=== PATIENT | female | born 1980 | race Caucasian/White ===

== ENCOUNTER 2016-12-25 17:50 | Inpatient (IN) | payer OTHER ==
--- NOTE | ~2016-12-25 | CR72 ---
[facility] A Service of [facility] & [facility] RADIOLOGY TEXT RESULTS PATIENT: ONI JODRAN LOCATION: [facility] 330-01 : 78 UNIT #: [id number] AGE: [address]: Jatin Hernandez MD SEX: F ORDER DR: [id number] [facility] [address] [facility]. [place], [place] [address] [id number] I MR#: [id number] Acc #: [id number] NAME: ONI JORDAN. : 1980 SEX: F STUDY DATE/TIME: 12/27/2016 0421 UNIT: [address] ROOM: [facility] STUDY DESCRIPTION: CR Chest Single View Portable Attending Physician: Jatin Hernandez M.D. Ordering Physician: Jatin Hernandez M.D. Primary Care Physician: No Primary Care Physician MEDICAL IMAGING REPORT This report is preliminary unless electronic signature is present EXAM Portable chest, 12/27 at 0421. INDICATION Chest tube. Shortness of air. FINDINGS AP portable chest is compared with 12/26/2016. Cardiac and mediastinal contours are stable. Right chest tube remains in place. No definite pneumothorax on either side. There is some atelectasis in the right base. Left lung clear. Dictated by... Jorge Antonio Jr., M.D. THIS IS AN ELECTRONICALLY VERIFIED REPORT Jorge Antonio Jr., M.D. at 12/27/2016 11:59 PM FUENTES/ernesto TD: 12/27/2016 08:10 JOB #: [id number] MEDICAL IMAGING REPORT Page 1 of 1 COPY
--- NOTE | ~2016-12-25 | CR72 ---
[facility] A Service of [facility] & [facility] RADIOLOGY TEXT RESULTS PATIENT: ONI JORDAN LOCATION: [facility] 330-01 : 78 UNIT #: [id number] AGE: [address]: Jatin Hernandez MD SEX: F ORDER DR: [id number] [facility] [address] [facility]. [place], [place] [address] [id number] I MR#: [id number] Acc #: [id number] NAME: ONI JORDAN. : 1980 SEX: F STUDY DATE/TIME: 12/26/2016 5:59 UNIT: [address] ROOM: [facility] STUDY DESCRIPTION: CR Chest Single View Portable Attending Physician: Jatin Hernandez M.D. Ordering Physician: Jatin Hernandez M.D. Primary Care Physician: No Primary Care Physician MEDICAL IMAGING REPORT This report is preliminary unless electronic signature is present EXAM AP chest radiograph dated 12/26. COMPARISON 12/25/2016 HISTORY Chest tube follow up. FINDINGS An AP view is obtained. Heart size is normal. Left lung is clear. On the right side, there is a drain in the pleural space. There is a small amount of subcutaneous emphysema. There is no evidence of pneumothorax. There is atelectasis in the right base. CONCLUSION Right-sided pleural drain remains in place with atelectasis in the right base. This has increased minimally. No pneumothorax. Dictated by... Jerome Selby M.D. THIS IS AN ELECTRONICALLY VERIFIED REPORT Jerome Selby M.D. at 12/28/2016 5:02 PM WALKER/ernesto TD: 12/26/2016 12:35 JOB #: [id number] MEDICAL IMAGING REPORT Page 1 of 1 COPY
--- NOTE | ~2016-12-25 | DS ---
Unit #: [id number] #: [id number] Patient: ELANA JORDAN [id number] [address] [place], [place] [address] [id number] I MR#: [id number] NAME: ELANA JORDAN ROOM: 330 Age: 36 Sex: F Admission Date: 12/25/2016 : 1980 Discharge Date: 12/28/2016 Attending Physician: Jatin Hernandez M.D. Primary Care Physician: No Primary Care Physician DISCHARGE SUMMARY REASON FOR ADMISSION Right pneumothorax, spontaneous. HISTORY OF PRESENT ILLNESS Ms. Elana Jordan is a 36-year-old female who developed a right sided chest pain and increased shortness of breath on 12/25/16. Her symptoms became worse over the day and she presented to [facility] emergency room. A chest x-ray obtained showed a large right pneumothorax. Following admission, Dr. Hernandez placed a #28 chest tube in the right chest. Her lung reinflated and this morning her chest tube was without air leak and with minimal drainage and she is ready to have her chest tube removed. The chest tube will be removed and she will be discharged home. On physical examination, temperature is 98.1, heart rate is 94, respiratory rate is 18, blood pressure is 104/70. Auscultation of her LUNGS found them to be clear. No rales, rhonchi or wheezes. There is no subcu emphysema. CARDIOVASCULAR - S1, S2, without rub, without murmur. No S3 or 4 and no peripheral edema. Her ABDOMEN is round, soft. Bowel sounds positive. Nontender. No pulsatile masses or hepatosplenomegaly. MEDICATIONS Medications on discharge will include oxycodone 5 mg, one or two every four hours p.r.n. for pain. IMPRESSION Spontaneous right pneumothorax, status post #28 chest tube placed on 12/25/16 under the direction of Dr. Jatin Hernandez. PLAN Chest tube is removed following chest x-ray. If all is well, patient will be discharged home. No tub bathing. She may shower on 12/31/16. No lifting over ten pounds. Follow up with Dr. Hernandez on 01/14/17 at 2 p.m. in the afternoon. Dictated by... Danisha Roberts A.P.R.N. for Jatin Hernandez M.D. TB/df TD: 12/28/2016 10:35 JOB #: [id number] Unit #: [id number] #: [id number] Patient: ELANA JORDAN DISCHARGE SUMMARY Page 1 of 1 X Danisha Roberts APRN X DISCHARGE SUMMARY
--- NOTE | ~2016-12-25 | HP ---
Unit #: [id number] #: [id number] Patient: ONI JORDAN [id number] [facility] [address] [facility]. [place], [place] [address] [id number] Lee MR#: [id number] NAME: ONI JORDAN. ROOM: 330 Age: 36 Sex: F Admission Date: 12/25/2016 : 1980 Attending Physician: Jatin Henrandez M.D. Primary Care Physician: No Primary Care Physician HISTORY AND PHYSICAL HISTORY OF PRESENT ILLNESS The patient is a 36-year-old white female who developed right-sided chest pain and increased shortness of breath this a.m. The symptoms became worse over the day and she presented to the emergency room at [facility]. During the process of workup, a chest x-ray was obtained that showed a large right pneumothorax to be present. I was asked to see the patient for chest tube insertion. PAST MEDICAL HISTORY History of hypercholesterolemia. PAST SURGICAL HISTORY Tubal ligation. SOCIAL HISTORY She smokes about 1.5-2 packs of cigarettes per day. She states that she smokes marijuana about three times per week. ALLERGIES No known drug allergies. CURRENT MEDICATIONS She states she took some Dayquil over the day, but denies any chronic medications at home. REVIEW OF SYSTEMS Essentially negative except for those things stated in the present illness and past history. PHYSICAL EXAMINATION VITALS: Temperature 98.4, pulse 107, respiratory rate 16, blood pressure 141/80. HEENT: Normocephalic without lesions. Pupils are equally round and reactive to light. Extraocular movements are full. NECK: Supple without adenopathy. LUNGS: Decreased breath sounds on the right. The left lung is clear to auscultation. HEART: Regular rhythm without murmur. ABDOMEN: Soft and nontender without masses and wish good bowel sounds. EXTREMITIES: No cyanosis or edema present. NEUROLOGIC: Oriented times three. There are no focal neurologic deficits on exam. ASSESSMENT Unit #: [id number] #: [id number] Patient: ONI JORDAN 1. Right spontaneous pneumothorax. 2. History of hypercholesterolemia. PLAN Plan is to proceed with right chest tube insertion. Dictated by Lincoln Patel/christine TD: 12/26/2016 06:00 JOB #: [id number] CC: Jatin Hernandez M.D. HISTORY AND PHYSICAL Page 1 of 1 X Jatin Hernandez MD HISTORY AND PHYSICAL
--- NOTE | ~2016-12-25 | CR72 ---
[facility] A Service [facility] RADIOLOGY TEXT RESULTS PATIENT: ONI JORDAN LOCATION: [address] : [birth year] UNIT #: [id number] AGE: [address]: Jatin Hernandez MD SEX: F ORDER DR: [id number] [facility] [address] [facility]. [place], [place] [address] [id number] I MR#: [id number] Acc #: [id number] NAME: ONI JORDAN. : 1980 SEX: F STUDY DATE/TIME: 12/25/2016 17:41 [facility] ROOM: [address] [place] [address] DESCRIPTION: CR Chest Single View Portable Attending Physician: Jatin Hernandez M.D. Ordering Physician: Lawrence Blue M.D. Primary Care Physician: No Primary Care Physician MEDICAL IMAGING REPORT This report is preliminary unless electronic signature is present EXAM Portable chest. DATE OF EXAM 12/25/2016 INDICATIONS 36-year-old female with chest pain, tightness and shortness of breath since 9:30 this morning. COMPARISON No comparisons are available. FINDINGS There is a large right-sided pneumothorax. There is some mild shift of the mediastinum from right to left indicating tension. No acute infiltrate in the left lung. Heart size is normal. IMPRESSION Large right-sided pneumothorax with evidence of tension. Findings discussed with Dr. Blue in the emergency room at the time of this dictation. Dictated by... Bang Zarate M.D. THIS IS AN ELECTRONICALLY VERIFIED REPORT Bang Zarate M.D. at 12/28/2016 8:01 AM PUSHPA/gume TD: 12/25/2016 23:45 JOB #: [id number] [facility] A [facility] RADIOLOGY TEXT RESULTS PATIENT: ONI JORDAN LOCATION: [facility] 330 : 78 UNIT #: [id number] AGE: [address]: Jatin Hernandez MD SEX: F ORDER DR: MEDICAL IMAGING REPORT Page 1 of 1 COPY
--- NOTE | ~2016-12-25 | A ---
[facility] Nutrition Therapy DATE: 12/26/16 Patient: ONI JORDAN Physician: JOSE DE JESUS Address: [address] [place] [address] Room/Bed: [address] [place] [address], Zip: [place] [address] Admit Date: 12/25/16 Date of : [birth year] Height: 5 0 Weight: 92 42 NUTRITIONAL ASSESSMENT: REASON: LOW BMI PT IS 36 Y.O. FEMALE ADMITTED FOR SHORTNESS OF BREATH PMH: HYPERCHOLESTEROLEMIA, 1.5-2 PPD SMOKER Anthropometrics: 4'11" (PER PT), WT: 95# (43 KG), BMI: 19.2, 102%IBW -WEIGHTS HAVE RANGED 92-96# SINCE ADMIT, ALSO 5'0" WAS ALSO OBTAINED AT THIS ADMIT Labs: BUN: 5 Meds: REVIEWED I/O & Bowel function: 240/601 Skin Integrity: NO KNOWN SKIN ISSUES Estimated Nutrition Needs: INCREASED NUTRIENT NEEDS 2' CURRENT CONDITION Assessment: CHART REVIEWED AND EVENTS NOTED. PT SEEN FOR LOW BMI. PT REPORTS DECREASED PO INTAKE 2' DECREASED APPETITE PAST 1-2 DAYS 2' SOB. PT REPORTS USUAL FAIR PO INTAKE, STATES HER APPETITE "COMES AND GOES". PT REPORTS SHE HAS ALWAYS BEEN SMALL, DENIES ANY RECENT WEIGHT LOSS. THIS RD ENCOURAGED SLOW GRADUAL PO INTAKE + ADEQUATE KCAL AND PROTEIN INTAKE (SUPPLEMENT INTAKE), PT AGREED TO ENSURE SHAKES BID. PT REPORTED NO DIET QUESTIONS AT THIS TIME. RD TO FOLLOW. OF NOTE, PT IS S/P (R) CHEST TUBE INSERTION AT THIS ADMIT Dx: INADEQUATE PROTEIN-ENERGY INTAKE R/T DECREASED APPETITE AEB PT REPORT ABOVE, PT NOTES TO BE LOW BOY WEIGHT. Intervention: 1. REGULAR DIET 2. ENSURE SHAKES BID Monitoring, Evaluation and Goals: 1. PO INTAKE; CONSUME >50% OF MEALS AND SUPPLEMENTS W/NO C/O N/V/D 2. WEIGHTS; PREVENT ANY WEIGHT LOSS; PROMOTE WEIGHT GAIN/MAINTENANCE 3. GI; PROMOTE REGULAR GI FUNCTION MONITOR: -PO INTAKE/APPETITE -WEIGHTS [facility] Nutrition Therapy DATE: 12/26/16 Patient: ONI JORDAN Physician: JOSE DE JESUS Address: [address] [place] [address] Room/Bed: [address] [place] [address], Zip: [place] [address] Admit Date: 12/25/16 Date of : [birth year] Height: 5 0 Weight: 92 42 -SUPPLEMENT INTAKE Recommendations: 1. ORDER STRAWBERRY ENSURE SHAKES BID W/MEALS 2. ENCOURAGE PO AND SUPPLEMENT INTAKE. IF PO TO HAVE GOOD PO INTAKE AND APPETITE, CHANGE CURRENT DIET ORDER TO 2' PMH 3. PLEASE WEIGH PT q 3 DAYS FOR MONITORING PURPOSES RD WILL F/U PER PROTOCOL PT IS MILDLY COMPROMISED Respectfully, MATTHEW YOUSIF MS, RD, LD [facility] cc: client file
--- NOTE | ~2016-12-25 | OR ---
Unit #: [id number] #: [id number] Patient: ONI JORDAN [id number] [address] [address] [id number] I MR#: [id number] NAME: ONI JORDAN ROOM: [facility] Date of Procedure: 12/25/2016 Admission Date: 12/25/2016 Surgeon: Jatin Hernandez M.D. : 1980 Attending Physician: Jatin Hernandez M.D. OPERATIVE REPORT PREOPERATIVE DIAGNOSIS Large right spontaneous pneumothorax. POSTOPERATIVE DIAGNOSIS Large right spontaneous pneumothorax. PROCEDURE PERFORMED Insertion of a #28 right chest tube. ANESTHESIA Local 1% Xylocaine plus 4 mg of intravenous morphine sulfate. ESTIMATED BLOOD LOSS Minimal. COMPLICATIONS None. DESCRIPTION OF PROCEDURE The patient was placed in a supine position on her stretcher with the right side elevated slightly. The right chest was prepped with ChloraPrep and draped in a sterile fashion. The patient was given 4 mg of intravenous morphine sulfate. After adequate anesthesia had been obtained using local 1% Xylocaine, a small transverse skin incision was made just slightly below the fifth intercostal space. A tonsil clamp was used to spread along the subcutaneous tissue and then to go down through the intercostal muscles into the pleural space. After the muscles at this area had been spread and the tract dilated with the clamp, a #28 trocar chest tube was inserted and passed to the apex of the chest. This tube was sutured in place to the skin using 2-0 silk suture. A cut 4x4 was placed around the chest tube and it was secured in place with tape. The tube was connected to a Pleur-evac. Estimated blood loss in the procedure was minimal. The patient tolerated the procedure well. Dictated by... Lincoln Patel/shai TD: 12/26/2016 03:30 Unit #: [id number] #: [id number] Patient: ONI JORDAN JOB #: [id number] OPERATIVE REPORT Page 1 of 1 X Jatin Hernandez MD X PROCEDURE OPERATIVE NOTE
--- NOTE | ~2016-12-25 | CR72 ---
[facility] A Service of [facility] RADIOLOGY TEXT RESULTS PATIENT: ONI JORDAN LOCATION: [facility] 330 : 78 UNIT #: [id number] AGE: [address]: Jatin Hernandez MD SEX: F ORDER DR: [id number] [facility] [address] [facility]. [place], [place] [address] [id number] I MR#: [id number] Acc #: [id number] NAME: ONI JORDAN. : 1980 SEX: F STUDY DATE/TIME: 12/28/2016 6:23 UNIT: [address] ROOM: [facility] STUDY DESCRIPTION: CR Chest Single View Portable Attending Physician: Jatin Hernandez M.D. Ordering Physician: Jatin Hernandez M.D. Primary Care Physician: No Primary Care Physician MEDICAL IMAGING REPORT This report is preliminary unless electronic signature is present EXAM AP portable chest. DATE 12/28/2016 HISTORY 36-year-old female with shortness of breath and chest tube placement. Symptoms began 12/25/2016. History of right spontaneous pneumothorax. Smoking history. COMPARISON AP portable chest, 12/27/2016. FINDINGS Right chest tube is unchanged in position with the tip extending toward the apex. No pneumothorax is seen. The lungs appear free of acute airspace disease. Heart size is normal. No definite pleural effusion. IMPRESSION 1. Stable position of the right chest tube. No visible pneumothorax. 2. Previously described right basilar atelectasis appears re-expanded or resolved. No acute airspace disease. Dictated by... Cristina Braswell M.D. THIS IS AN ELECTRONICALLY VERIFIED REPORT Cristina Braswell M.D. at 12/29/2016 8:33 AM [facility]/jorgew [facility] A Service of [facility] & [facility] RADIOLOGY TEXT RESULTS PATIENT: ONI JORDAN LOCATION: [facility] 330 : 78 UNIT #: [id number] AGE: [address]: Jatin Hernandez MD SEX: F ORDER DR: TD: 12/28/2016 10:10 JOB #: [id number] MEDICAL IMAGING REPORT Page 1 of 1 COPY
--- NOTE | ~2016-12-25 | CR72 ---
[facility] A Service of [facility] & [facility] RADIOLOGY TEXT RESULTS PATIENT: ONI JORDAN LOCATION: [facility] 330-01 : 78 UNIT #: [id number] AGE: [address]: Jatin Hernandez MD SEX: F ORDER DR: [id number] [facility] [address] [facility]. [place], [place] [address] [id number] I MR#: [id number] Acc #: [id number] NAME: ONI JORDAN : 1980 SEX: F STUDY DATE/TIME: 12/28/2016 09:43 UNIT: [address] ROOM: [facility] STUDY DESCRIPTION: CR Chest Single View Portable Attending Physician: Jatin Hernandez M.D. Ordering Physician: Danisha Roberts A.P.R.N. Primary Care Physician: No Primary Care Physician MEDICAL IMAGING REPORT This report is preliminary unless electronic signature is present EXAM Chest, portable, 12/28/2016, 0943 hours. CLINICAL HISTORY 36-year-old status post right chest tube removal today, shortness of air. COMPARISON 12/28/2016, 0623 hours FINDINGS Portable upright chest demonstrates interval removal of right chest tube. There is no pneumothorax or pleural effusion. The lungs are clear. IMPRESSION Interval removal of right chest tube with no pneumothorax or pleural effusion. Dictated by... Avis Cartagena M.D. THIS IS AN ELECTRONICALLY VERIFIED REPORT Avis Cartagena M.D. at 12/28/2016 2:28 PM JOSE ALBERTO/ernesto TD: 12/28/2016 12:14 JOB #: [id number] MEDICAL IMAGING REPORT Page 1 of 1 COPY
--- NOTE | ~2016-12-25 | CR72 ---
[facility] A Service of [facility] & [facility] RADIOLOGY TEXT RESULTS PATIENT: ONI JORDAN LOCATION: [facility] 330- : 78 UNIT #: [id number] AGE: [address]: Jatin Hernandez MD SEX: F ORDER DR: [id number] [facility] [address] [facility]. [place], [place] [address] [id number] I MR#: [id number] Acc #: [id number] NAME: ONI JORDAN. : 1980 SEX: F STUDY DATE/TIME: 12/25/2016 19:44 UNIT: [address] ROOM: [facility] STUDY DESCRIPTION: CR Chest Single View Portable Attending Physician: Jatin Hernandez M.D. Ordering Physician: Jatin Hernandez M.D. Primary Care Physician: No Primary Care Physician MEDICAL IMAGING REPORT This report is preliminary unless electronic signature is present EXAM Portable chest HISTORY Chest tube placement today for pneumothorax. Shortness of air. FINDINGS Right chest tube has been placed since earlier today with its tip at the right apex and there has been evacuation of the large right pneumothorax. There is small amount of fluid in the minor fissure and mild atelectasis adjacent to the mid right hilum and in the right mid lung. No new infiltrates on the left. Dictated by... Kranthi Harris M.D. THIS IS AN ELECTRONICALLY VERIFIED REPORT Kranthi Harris M.D. at 12/26/2016 11:19 PM DFL/rnr TD: 12/26/2016 03:47 JOB #: [id number] MEDICAL IMAGING REPORT Page 1 of 1 COPY
--- NOTE | ~2016-12-25 | EKG ---
PATIENT: ONI JORDAN UNIT #: [id number] Ventricular Rate: 102 BPM Atrial Rate: 102 BPM P-R Interval: 130 ms QRS Duration: 80 ms Q-T Interval: 330 ms QTC Calculation(Bezet): 430 ms P [place]: 91 degrees Calculated R [place]: 84 degrees Calculated T [place]: 38 degrees Diagnosis Line: Sinus tachycardia Diagnosis Line: Left ventricular hypertrophy with repolarization Diagnosis Line: abnormality Diagnosis Line: Abnormal ECG Diagnosis Line: No previous ECGs available Diagnosis Line: Confirmed by SHY LOPEZ MD ([id number]) on 12/25/2016 Diagnosis Line: 7:27:02 PM INTERPRETING MD: JOHN VAZ
[2016-12-25 17:44] LABS: POC - CKMB <1.0 ng/mL (0.0-7.9); POC - TROPONIN <0.05 ng/mL (<=0.05)
[2016-12-25 17:58] LABS: BASOPHIL# 0.1 X10e3 (0-0.3); BASOPHIL% 0.4 % (0-2.5); EOSINOPHIL% 0.2 % (0.0-7.0); HEMATOCRIT 42.8 % (35.0-45.0); LYMPHOCYTE# 1.8 X10e3 (1.0-3.5); MEAN CELL VOLUME 99.5 FL (83-96); MEAN CORPUSCULAR HEMOGLOBIN 32.5 PG (28-34); MEAN CORPUSCULAR HGB CONC 32.6 g/dL (30-36); MEAN PLATELET VOLUME 9.9 FL (6.5-11.5); MONOCYTE# 1.1 X10e3 (0-1.0); MONOCYTE% 6.9 % (3.0-12.0); NEUTROPHIL# 12.3 X10e3 (1.5-7.1); NEUTROPHIL% 80.5 % (40-75); PLATELET COUNT 254 X10e3 (140-420); RED CELL DISTRIBUTION WIDTH 12.1 % (11.0-15.5); WHITE BLOOD COUNT 15.3 X10e3 (4.0-10.5)
[2016-12-25 18:00] LABS: DIFF IND YES
[2016-12-25 18:08] LABS: ALBUMIN SERUM 4.5 g/dL (3.5-5.0); ALKALINE PHOSPHATASE 62 U/L (32-92); ALT (SGPT) 17 U/L (10-40); AST (SGOT) 20 U/L (10-42); BILIRUBIN,TOTAL 0.7 mg/dL (0.2-2.0); BLOOD UREA NITROGEN 6 mg/dL (9-23); CALCIUM SERUM 9.5 mg/dL (8.4-10.2); CARBON DIOXIDE 21 mmol/L (22-31); CHLORIDE 108 mmol/L (100-111); CREATININE SERUM 0.5 mg/dL (0.6-1.4); GLOM FILT RATE Estimated 122.8 mL/min (>60); GLUCOSE FASTING 135 mg/dL (70-110); POTASSIUM 3.4 mmol/L (3.5-5.1); PROTEIN TOTAL SERUM 7.7 g/dL (6.0-8.3); SODIUM 138 mmol/L (135-145)
[2016-12-25 18:10] LABS: BILIRUBIN, DIRECT <0.1 mg/dL (0.0-0.2); BILIRUBIN,INDIRECT 0.6 mg/dL (0.0-0.9)
[2016-12-25 18:22] LABS: PLATELET ESTIMATE NORMAL (NORMAL)
[2016-12-25 18:23] LABS: RBC NORMAL YES
[2016-12-26 02:58] LABS: URINE SOURCE CLEAN CATCH
[2016-12-26 03:06] LABS: URINE APPEARANCE CLEAR; URINE BILIRUBIN NEG (NEG); URINE BLOOD NEG (NEG); URINE COLOR YELLOW; URINE GLUCOSE NEG (NEG); URINE KETONE NEG (NEG); URINE LEUKOCYTE ESTERASE NEG (NEG); URINE NITRATE NEG (NEG); URINE PH 5.5 (5-8); URINE PROTEIN NEG (NEG); URINE SPECIFIC GRAVITY 1.007 (1.003-1.035); URINE UROBILINOGEN 0.2 MG/DL (NEG)
[2016-12-26 03:26] LABS: CULTURE INDICATED? NO
[2016-12-26 07:17] LABS: HEMATOCRIT 40.2 % (35.0-45.0); HEMOGLOBIN 13.4 gm/dL (12.0-16.0); MEAN CELL VOLUME 99.9 FL (83-96); MEAN CORPUSCULAR HEMOGLOBIN 33.3 PG (28-34); MEAN CORPUSCULAR HGB CONC 33.4 g/dL (30-36); RED BLOOD COUNT 4.03 X10e (3.90-5.30); RED CELL DISTRIBUTION WIDTH 11.9 % (11.0-15.5); WHITE BLOOD COUNT 11.7 X10e3 (4.0-10.5)
[2016-12-26 08:11] LABS: BUN/CREATININE RATIO 8.33; CREATININE SERUM 0.6 mg/dL (0.6-1.4); GLOM FILT RATE Estimated 115.6 mL/min (>60); POTASSIUM 3.6 mmol/L (3.5-5.1)
[2016-12-28] MEDS ORDERED: OXYCODONE HCL5 MG PO (10:07)
== END 2016-12-28 13:18 | disposition home or self-care (01) | DRG 201 ==
LOC: CED 17:50 → CEDOF 20:21 → C3A PCU 21:36
PROVIDERS: Emergency Medicine; Surgery
PROC: 0W9930Z Drainage of Right Pleural Cavity with Drainage Device, Percutaneous Approach (ICD-10-PCS; principal; 2016-12-25)
DX: J93.9 Pneumothorax, unspecified (principal); F17.210 Nicotine dependence, cigarettes, uncomplicated; Z98.51 Tubal ligation status
CPT/HCPCS: 71010; 80048; 80076; 81003; 82553; 82947; 84484; 85025; 85027; 93005; 96374; 99291; J1885; J2270

== ENCOUNTER → 2017-01-12 | Outpatient (CLI) | payer OTHER ==
[~2017-01-12] MED LIST: OXYCODONE HCL5 MG PO
--- NOTE | ~2017-01-12 | CR63 ---
[facility] A Service of [facility] & [facility] RADIOLOGY TEXT RESULTS PATIENT: ONI JORDAN LOCATION: [facility] : 78 UNIT #: [id number] AGE: [address]: Danisha Roberts METALLURGICAL INSPECTOR SEX: F ORDER DR: [id number] [facility] [address] [facility] [place], [place] [address] [id number] O MR#: [id number] Acc #: [id number] NAME: ONI JORDAN. : 1980 SEX: F STUDY DATE/TIME: 01/12/2017 14:23 UNIT: [facility] ROOM: STUDY DESCRIPTION: CR Chest 2 View Attending Physician: Danisha Roberts A.P.R.N. Referring Physician: Danisha Roberts A.P.R.N. Ordering Physician: Danisha Roberts A.P.R.N. MEDICAL IMAGING REPORT This report is preliminary unless electronic signature is present EXAM Two views chest 01/12/2017 HISTORY Pneumothorax. Follow up pneumothorax right side. Short of air. TECHNIQUE AP radiograph of the chest is presented. COMPARISON STUDIES 12/28/2016. FINDINGS No acute-appearing bony abnormality. Heart, mediastinum normal in size and contour. Lungs well inflated bilaterally. There is no evidence of acute infectious or inflammatory disease, pleural effusion or pneumothorax. No suspicious nodule. Visualized upper abdomen unremarkable. Dictated by... Jerome Cain M.D. THIS IS AN ELECTRONICALLY VERIFIED REPORT Jerome Cain M.D. at 01/13/2017 11:06 PM Alfonzo TD: 01/12/2017 22:48 JOB #: [id number] MEDICAL IMAGING REPORT Page 1 of 1 COPY
== END | disposition home or self-care (01) ==
LOC: CRAD 14:07
DX: J93.9 Pneumothorax, unspecified (principal)
CPT/HCPCS: 71020